=== PATIENT | female | born 1950 | race Caucasian/White ===

== ENCOUNTER 2017-06-23 10:37 | Emergency (ER) | payer MEDICARE, OTHER ==
[~2017-06-23] VITALS: Wt 65.9 kg
--- NOTE | 2017-06-23 11:19 | ERD ---
ER Documentation Chief Complaint Chief Complaint l. flank pain, dysuria HPI 67 y/o female with history of well controlled DM, presents to the ED c/o one week of persistent dysuria and urinary frequency associated with malodorous urine and mild left lower back pain for the last 2 days. The patient is concerned about a possible UTI because she has had it in the past and feels the same. Last UTI more than one year ago. Denies fever or chills, no abdominal pain ROS SYSTEMIC symptoms: no fever, chills, no night sweats, no weight loss EYE symptoms: No blurred vision, no eye discharge OTOLARYNGEAL symptoms: No hearing loss. No ear pain, no sore throat CARDIOVASCULAR symptoms: No chest pain or discomfort, no palpitations. PULMONARY symptoms: No dyspnea, no cough, no wheezing. GASTROINTESTINAL symptoms: No abdominal pain, no nausea, no vomiting, no diarrhea MUSCULOSKELETAL symptoms: No arthralgias, no muscle aches. NEUROLOGY symptoms: No confusion, no syncope, no numbness or tingling. SKIN no rashes All systems reviewed and are negative except as per history of present illness. Medications Home Meds Active Scripts Ibuprofen* (Motrin*) 600 Mg Tab, 600 MG PO Q8, #30 TAB Prov:FRANKY MCMILLAN MD 06/23/17 Baclofen* (Baclofen*) 10 Mg Tablet, 10 MG PO BID for MUSCLE SPASMS for 5 Days, TAB Prov:FRANKY MCMILLAN MD 06/23/17 Ciprofloxacin Hcl* (Ciprofloxacin Hcl*) 500 Mg Tablet, 250 MG PO BID for 3 Days , TAB Prov:FRANKY MCMILLAN MD 06/23/17 Allergies Allergies: Coded Allergies: No Known Allergy (Unverified , 06/23/17) NKA PER FTE JEAN-PAUL PMhx/Soc Diabetes type 2 on Metformin Physical Exam Vitals Vital Signs Date Time Temp Pulse Resp B/P Pulse Ox O2 Delivery O2 Flow Rate FiO2 06/23/17 10:42 97.6 78 20 138/56 99 Physical Exam Const: Alert, oriented, no acute distress Head: Atraumatic Eyes: Normal Conjunctiva ENT: Normal External Ears, Nose and Mouth. Neck: Full range of motion..~ No meningismus. Resp: Clear to auscultation bilaterally Cardio: Regular rate and rhythm, no murmurs Abd: Soft, non tender, non distended. Normal bowel sounds Skin: No petechiae or rashes Back: No midline or flank tenderness Results 24 hrs Laboratory Tests Test 06/23/17 11:52 Urine Color YELLOW Urine Clarity CLEAR Urine pH 6.0 Urine Specific [place] 1.016 Urine Ketones NEGATIVEmg/dL Urine Nitrite NEGATIVEmg/dL Urine Bilirubin NEGATIVEmg/dL Urine Urobilinogen NEGATIVEmg/dL Urine Leukocyte Esterase NEGATIVELeu/ul Urine Hemoglobin NEGATIVEmg/dL Urine Glucose NEGATIVEmg/dL Urine Total Protein NEGATIVEmg/dl Current Medications Medications (Trade) Dose Ordered Sig/Pepe Route PRN Reason Start Time Stop Time Status Last Admin Dose Admin Ketorolac Tromethamine (Toradol) 30 mg ONCE STAT IM 06/23/17 11:45 06/23/17 11:49 DC 06/23/17 11:54 Procedures/MDM 67y/o female patient with history of type 2 diabetes mellitus, presents to the ED c/o dysuria, urinary frequency and back pain for 7 day days. Physical exam and vital signs unremarkable. Differential diagnosis include but not limited to : UTI, kidney stone, muscle spasm. Labs requested showed: normal UA. Physical examination and clinical presentation consistent most likely with acute cystitis. During the ED course the patient received treatment with Toradol IM presenting overall improvement of the symptoms. Results and medical impression discussed with patient. The patient will be discharged home with a Rx for antibiotics for UTI and 3-day supply for ibuprofen and baclofen prn pain. Side effects of prescribed muscle relaxants (drowsiness, habituation) were reviewed. Side effects of prescribed NSAID medication (GI distress, edema, bleeding, HTN) were reviewed. If symptoms persist, worsen or new symptoms develop, then patient is instructed to follow-up with the primary care provider. If the patient is unable to see the primary care provider, then return to the ED immediately. Departure Diagnosis: Primary Impression: Acute cystitis Additional Impression: Acute back pain Condition: Stable Patient Instructions: Bladder Infection, Cystitis Vs. Pyelo (Child) Additional Instructions: Muchas narinder por [facility] para heck servicio. Esperamos que en heck visita a la jonathon de emergencia heck problema medico haya sido solucionado y que se sienta mucho mejor. Para estar seguros que ehck mejoria sigue en proceso, le pedimos el favor de hacer davian shaq de seguimiento medico con heck doctor primario en los proximos 2-4 galeano. Lleve con usted estos documentos y las medicinas recetadas. Si shoaib sintomas empeoran y no puede chaparro a heck doctor, por favor regrese a jonathon de emergencia. GARCIA-FRANKY GARDNER MD Jun 23, 2017 11:19
[2017-06-23] MEDS ORDERED: KETOROLAC 30 MG INJ IM STA (11:45)
[2017-06-23] MEDS ORDERED: CIPR500T4 PO (12:40)
[2017-06-23] MEDS ORDERED: BACL10TA PO (12:42)
[2017-06-23] MEDS ORDERED: IBUP-1542 PO (12:42)
== END 2017-06-23 12:56 | disposition home or self-care (01) ==
LOC: FTE 10:37
DX: N30.00 Acute cystitis without hematuria (principal); E11.9 Type 2 diabetes mellitus without complications; Z79.84 Long term (current) use of oral hypoglycemic drugs
CPT/HCPCS: 81003; J1885; 96372